=== PATIENT | female | born 1970 | race Caucasian/White ===

== ENCOUNTER 2016-05-24 15:58 | Emergency (ER) | payer MEDICAID ==
[~2016-05-24] VITALS: Ht 160 cm; Wt 55.0 kg
[2016-05-24 16:02] VITALS: BP 105/80
== END 2016-05-24 17:43 | disposition left against medical advice (07) ==
LOC: ER 16:02
DX: M79.1 Myalgia (principal)

== ENCOUNTER 2016-05-27 13:22 | Emergency (ER) | payer MEDICAID ==
[~2016-05-27] VITALS: Ht 162.6 cm; Wt 70.0 kg
[2016-05-27 18:37] VITALS: BP 111/70
[2016-05-27 19:04] LABS: *AMPHETAMINES SCREEN URINE NEGATIVE (NEGATIVE); *BARBITURATES SCREEN URINE NEGATIVE (NEGATIVE); *BENZODIAZEPINES SCREEN URINE NEGATIVE (NEGATIVE); *COCAINE SCREEN URINE NEGATIVE (NEGATIVE); CANNABINOID URINE SCREEN NEGATIVE (NEGATIVE); ECSTASY MDMA SCREEN URINE NEGATIVE (NEGATIVE); METHADONE URINE SCREEN NEGATIVE (NEGATIVE); OPIATES URINE SCREEN NEGATIVE (NEGATIVE); PHENCYCLIDINE URINE SCREEN NEGATIVE (NEGATIVE)
== END 2016-05-27 19:05 | disposition home or self-care (01) ==
LOC: ER 13:26
DX: F10.129 Alcohol abuse with intoxication, unspecified (principal); Y90.8 Blood alcohol level of 240 mg/100 ml or more
CPT/HCPCS: 36415; 80305; 99283; G0482

== ENCOUNTER 2016-05-28 14:58 | Emergency (ER) | payer MEDICAID ==
[~2016-05-28] VITALS: Ht 162.6 cm; Wt 65.0 kg
[2016-05-28 15:01] VITALS: BP 112/83
== END 2016-05-28 19:30 | disposition left against medical advice (07) ==
LOC: ER 14:59
DX: Z53.21 Procedure and treatment not carried out due to patient leaving prior to being seen by health care provider (principal)